=== PATIENT | female | born 1945 | race Caucasian/White ===

== ENCOUNTER → 2018-02-15 | Outpatient (CLI) | payer MEDICARE ==
[~2018-02-15] MED LIST: ACET325 PO; ALPR.25 PO; ATOR10 PO; CITA20 PO; CLOP75 PO; CONEST.625 PO; FERR325 PO; FLUO.05TO TOP; IMIP50 PO; LOSA50 PO; LOVA20 PO; OLME20 PO; Sudogest60 MG PO; WARF4 PO; WARF7.5 PO
[2018-02-15 14:17] LABS: International Normalized Ratio 2.44; Prothrombin Time Results 26.1 Sec (9.7-11.5)
== END ==
LOC: LAB 13:28 → LAB SHORT 13:28
PROVIDERS: Family Medicine
DX: M79.652 Pain in left thigh (principal)
CPT/HCPCS: 85610

== ENCOUNTER 2019-05-10 19:56 | Emergency (ER) | payer MEDICARE ==
[~2019-05-10] VITALS: Ht 157.5 cm; Wt 74.8 kg
[2019-05-10] MEDS ORDERED: POTA10T PO (22:20)
[2019-05-10] MEDS ORDERED: Lasix40 MG PO (22:20)
[2019-05-10] MEDS ORDERED: ZOLP10 PO (22:21)
[2019-05-10] MEDS ORDERED: Ipratropium Bro30 ML (22:21)
== END 2019-05-10 22:23 | disposition home or self-care (01) ==
LOC: ER 19:56
DX: K59.00 Constipation, unspecified (principal); I10 Essential (primary) hypertension; E78.5 Hyperlipidemia, unspecified; F32.9 Major depressive disorder, single episode, unspecified; Z86.711 Personal history of pulmonary embolism; Z88.2 Allergy status to sulfonamides; Z79.899 Other long term (current) drug therapy
CPT/HCPCS: 74019; 99283-25

== ENCOUNTER 2019-05-22 09:32 | Day surgery (SDC) | payer MEDICARE ==
[~2019-05-22] VITALS: Ht 157.5 cm; Wt 75.9 kg
[~2019-05-22 09:32] MED LIST changes: +Ipratropium Bro30 ML; +Lasix40 MG PO; +POTA10T PO; +ZOLP10 PO
--- NOTE | 2019-05-22 10:31 | NUR ---
[facility] ADMISSION STARTED TO UNIT
--- NOTE | 2019-05-22 11:11 | NUR ---
05/22/19 Clay Guerrero PATIENT DETERMINED TO BE ASA APPROPRIATE FOR PROPOFOL SEDATION PRIOR TO START OF PROCEDURE BY 3-LEAD EKG REVIEWED WITH PHYSICIAN PRIOR TO START OF PROCEDURE.PATIENT CONFIRMS NPO STATUS AND AGREES WITH SCHEDULED PROCEDURE.History, Chart, Medications and Allergies reviewed before start of procedure.MONITOR INTACT WITH CONTINUOUS PULSE OXIMETRY AND INTERMITTENT BP.O2 VIA N/C INTACT THROUGHOUT SEDATION/PROCEDURE.
--- NOTE | 2019-05-22 11:51 | NUR ---
RECEIVED REPORT FROM ENDO RN(AMANDA). PT IS LAYING ON LT SIDE SLEEPING. VSS
--- NOTE | 2019-05-22 12:05 | NUR ---
PT SITTING UP DRINING JUICE JUST STATES COLD, NO OTHER COMPLAINTS.
--- NOTE | 2019-05-22 12:23 | NUR ---
Discharge instructions reviewed with patient. Patient verbalizes understanding. Copy given to patient to take home. PT HAS NO QUESTIONS OR CONCERNS WITH GOING HOME. WANTS TO GO HOME. HAS ALL PERSONAL BELONGINGS. Patient States Post-Procedure ride home has been arranged. Discharged via wheelchair to private car for ride home.
== END 2019-05-22 23:07 | disposition home or self-care (01) ==
LOC: ORSCMMR 09:32 → ORD 11:00 → ORSCMMR 23:07
PROVIDERS: Internal Medicine Gastroenterology
PROC: 0DBN8ZX Excision of Sigmoid Colon, Via Natural or Artificial Opening Endoscopic, Diagnostic (ICD-10-PCS; principal; 2019-05-22 11:00)
PROC: 0DBH8ZX Excision of Cecum, Via Natural or Artificial Opening Endoscopic, Diagnostic (ICD-10-PCS; principal; 2019-05-22 11:00)
PROC: 0DBM8ZX Excision of Descending Colon, Via Natural or Artificial Opening Endoscopic, Diagnostic (ICD-10-PCS; principal; 2019-05-22 11:00)
DX: R19.5 Other fecal abnormalities (principal); K63.5 Polyp of colon; D12.0 Benign neoplasm of cecum; D12.4 Benign neoplasm of descending colon; I10 Essential (primary) hypertension; E78.00 Pure hypercholesterolemia, unspecified; F32.9 Major depressive disorder, single episode, unspecified; Z86.711 Personal history of pulmonary embolism; Z87.891 Personal history of nicotine dependence; Z79.01 Long term (current) use of anticoagulants; Z79.899 Other long term (current) drug therapy
CPT/HCPCS: 88305; J2704; J7120

== ENCOUNTER 2021-07-25 23:20 | Emergency (ER) | payer MEDICARE ==
[~2021-07-25] VITALS: Ht 157.5 cm; Wt 74.8 kg
[2021-07-25] MEDS ORDERED: TELMISARTAN80 MG PO (23:31)
[2021-07-25] MEDS ORDERED: FLUC150A PO (23:31)
[2021-07-25] MEDS ORDERED: WARF5 PO (23:32)
[2021-07-25] MEDS ORDERED: PSEUDOEPHEDRINE30 M1 PO (23:38)
[2021-07-26 00:05] LABS: BASOPHILS ABSOLUTE AUTO 0.04 K/mm3 (0.00-0.23); BASOPHILS PERCENT AUTO 1 % (0-2); EOSINOPHILS ABSOLUTE AUTO 0.25 K/mm3 (0.00-0.68); EOSINOPHILS PERCENT AUTO 3 % (0-6); Hematocrit 35.5 % (33.0-51.0); Hemoglobin 11.7 g/dL (11.5-16.0); IMMATURE GRAN ABSOLUTE AUTO 0.01 K/mm3 (0.00-0.10); IMMATURE GRAN PERCENT AUTO 0 % (0-1); LYMPHOCYTES ABSOLUTE AUTO 1.82 K/mm3 (0.84-5.20); LYMPHOCYTES PERCENT AUTO 24 % (21-46); MONOCYTES ABSOLUTE AUTO 0.54 K/mm3 (0.16-1.47); MONOCYTES PERCENT AUTO 7 % (4-13); Mean Corpuscular HGB 30.2 pg (26.0-34.0); Mean Corpuscular Volume 92 fL (80-100); Mean Platelet Volume 10.1 fL (9.1-12.4); NEUTROPHILS ABSOLUTE AUTO 5.06 K/mm3 (1.96-9.15); NEUTROPHILS PERCENT AUTO 66 % (41-73); Platelet Count 256 K/mm3 (150-400); RDW Coefficient Variation 14.1 % (11.7-14.2); RDW Standard Deviation 47.7 fL (35.1-46.3); Red Blood Cell Count 3.87 M/mm3 (3.80-5.20); White Blood Cell Count 7.72 K/mm3 (4.00-11.30)
[2021-07-26 00:30] LABS: Prothrombin Time Results 83.7 Sec (9.7-11.5)
[2021-07-26 00:33] LABS: International Normalized Ratio 9.22
== END 2021-07-26 01:39 | disposition home or self-care (01) ==
LOC: ER 23:20
PROVIDERS: Physician Assistant
DX: N93.9 Abnormal uterine and vaginal bleeding, unspecified (principal); R79.1 Abnormal coagulation profile; E78.5 Hyperlipidemia, unspecified; I10 Essential (primary) hypertension; Z88.2 Allergy status to sulfonamides; Z79.899 Other long term (current) drug therapy
CPT/HCPCS: 36415; 85025; 85610; 99284; A9270

== ENCOUNTER → 2022-05-03 | Outpatient (CLI) | payer MEDICARE ==
[~2022-05-03] MED LIST changes: +FLUC150A PO; +PSEUDOEPHEDRINE30 M1 PO; +TELMISARTAN80 MG PO; +WARF5 PO
== END | disposition home or self-care (01) ==
LOC: LAB 10:20 → LAB SHORT 10:20
DX: N39.0 Urinary tract infection, site not specified (principal)
CPT/HCPCS: 87077; 87086; 87186

== ENCOUNTER → 2023-03-27 | Outpatient (CLI) | payer MEDICARE ==
[2023-03-27 19:31] LABS: International Normalized Ratio 2.34; Prothrombin Time Results 23.4 Sec (9.7-11.5)
== END ==
LOC: LAB SHORT 18:53 → LAB 18:53
PROVIDERS: Family Medicine
DX: Z51.81 Encounter for therapeutic drug level monitoring (principal); I26.99 Other pulmonary embolism without acute cor pulmonale; I82.401 Acute embolism and thrombosis of unspecified deep veins of right lower extremity
CPT/HCPCS: 85610

== ENCOUNTER → 2023-05-01 | Outpatient (CLI) | payer MEDICARE ==
[2023-05-01 14:26] LABS: International Normalized Ratio 1.67
== END ==
LOC: LAB SHORT 10:41 → LAB 10:41
PROVIDERS: Family Medicine
DX: Z51.81 Encounter for therapeutic drug level monitoring (principal); I26.99 Other pulmonary embolism without acute cor pulmonale
CPT/HCPCS: 85610

== ENCOUNTER → 2024-07-21 | Outpatient (CLI) | payer MEDICARE | END | disposition home or self-care (01) | LOC: LAB 09:20 → LAB SHORT 09:20 | DX: N39.0 Urinary tract infection, site not specified (principal) | CPT/HCPCS: 87077; 87086; 87186 ==

== ENCOUNTER → 2024-08-08 | Outpatient (CLI) | payer MEDICARE | LOC: LAB SHORT 16:15 → LAB 16:15 | DX: R35.0 Frequency of micturition (principal) | CPT/HCPCS: 87086 ==

== ENCOUNTER → 2024-10-09 | Outpatient (CLI) | payer MEDICARE ==
[2024-10-09 12:23] LABS: Source, Urine Clean Catch
[2024-10-09 15:03] LABS: Appearance, Urine Hazy (Clear); Bilirubin, Urine Neg (Neg); Blood, Urine Neg (Neg); Color, Urine Yellow (P-Yellow); Glucose Qualitative, Urine Neg (Neg); Ketones, Urine Neg (Neg); Leukocyte Esterase, Urine 3+ (Neg); Nitrite, Urine Pos (Neg); Protein, Urine Neg (Neg); Specific Gravity, Urine 1.015 (1.003-1.022); Urobilinogen, Urine 1+ (Normal); pH, Urine 6.5 (5.0-8.0)
[2024-10-09 15:22] LABS: Amorphous Mod (0-Heavy); Bacteria Many /hpf; Squamous Epithelial Cells Mod /hpf (Few); White Blood Cells, Urine 25-50 /hpf (0-5)
== END ==
LOC: LAB SHORT 12:21 → LAB 12:21
PROVIDERS: Family Medicine
DX: R30.0 Dysuria (principal)
CPT/HCPCS: 81001; 87086

== ENCOUNTER → 2025-02-02 | Outpatient (CLI) | payer MEDICARE ==
[2025-02-02 15:42] LABS: Source, Urine Voided
[2025-02-02 17:22] LABS: Appearance, Urine Cloudy (Clear); Bilirubin, Urine Neg (Neg); Blood, Urine 1+ (Neg); Color, Urine Yellow (P-Yellow); Glucose Qualitative, Urine Neg (Neg); Ketones, Urine Neg (Neg); Leukocyte Esterase, Urine 3+ (Neg); Nitrite, Urine Neg (Neg); Protein, Urine Neg (Neg); Specific Gravity, Urine 1.015 (1.003-1.022); Urobilinogen, Urine NORM (Normal)
[2025-02-02 17:47] LABS: Amorphous Mod (0-Heavy); Bacteria Many /hpf; Squamous Epithelial Cells Few /hpf (Few); White Blood Cells, Urine 25-50 /hpf (0-5)
== END | disposition home or self-care (01) ==
LOC: LAB SHORT 10:20 → LAB 10:20
PROVIDERS: Family Medicine
DX: R30.0 Dysuria (principal)
CPT/HCPCS: 81001; 87086

== ENCOUNTER → 2025-06-22 | Outpatient (CLI) | payer MEDICARE ==
[2025-06-22 15:28] LABS: Source, Urine Clean Catch
[2025-06-22 16:32] LABS: Glucose Qualitative, Urine Neg (Neg); Ketones, Urine Neg (Neg); Leukocyte Esterase, Urine 3+ (Neg); Protein, Urine 2+ (Neg); Specific Gravity, Urine 1.015 (1.003-1.022); Urobilinogen, Urine 2+ (Normal)
[2025-06-22 16:38] LABS: Bilirubin, Urine 2+ (Neg)
[2025-06-22 16:39] LABS: Color, Urine Yellow (P-Yellow)
[2025-06-22 16:40] LABS: Red Blood Cells, Urine 0-2 /hpf (0-2); White Blood Cells, Urine 25-50 /hpf (0-5)
== END | disposition home or self-care (01) ==
LOC: LAB 15:27 → LAB SHORT 15:27
PROVIDERS: Family Medicine
DX: R30.0 Dysuria (principal)
CPT/HCPCS: 81001; 87077; 87086; 87186

== ENCOUNTER → 2025-09-01 | Outpatient (CLI) | payer MEDICARE ==
[2025-09-01 17:42] LABS: Source, Urine Clean Catch
[2025-09-01 18:40] LABS: Color, Urine Amber (P-Yellow); Glucose Qualitative, Urine Neg (Neg); Ketones, Urine Neg (Neg); Leukocyte Esterase, Urine 1+ (Neg); Protein, Urine 1+ (Neg); Specific Gravity, Urine 1.015 (1.003-1.022); Urobilinogen, Urine 2+ (Normal)
[2025-09-01 18:51] LABS: Bilirubin, Urine 1+ (Neg)
[2025-09-01 18:52] LABS: Red Blood Cells, Urine 0-2 /hpf (0-2)
== END | disposition home or self-care (01) ==
LOC: LAB SHORT 17:39 → LAB 17:39
PROVIDERS: Family Medicine
DX: R30.0 Dysuria (principal)
CPT/HCPCS: 81001; 87086; 87147